=== PATIENT | male | born 1960 | race Caucasian/White ===

== ENCOUNTER → 2018-10-31 | Outpatient (CLI) | payer OTHER | LOC: FIMAGING 10:23 | PROVIDERS: ATTEND Family Medicine | DX: K59.00 Constipation, unspecified (principal) ==

== ENCOUNTER → 2018-11-07 | Outpatient (CLI) | payer OTHER ==
[~2018-11-07] MED LIST: IOPAMIDOL (ISOVUE-300) 100 ML BTL ONE
== END ==
LOC: FIMAGING 13:22
PROVIDERS: ATTEND Family Medicine
DX: K57.32 Diverticulitis of large intestine without perforation or abscess without bleeding (principal); R59.0 Localized enlarged lymph nodes; K59.00 Constipation, unspecified
CPT/HCPCS: Q9967